=== PATIENT | female | born 1980 ===

== ENCOUNTER 2022-05-15 05:55 | Day surgery (SDC) | payer OTHER ==
[~2022-05-15] VITALS: Ht 170.2 cm; Wt 104.3 kg
[2022-05-15] MEDS ORDERED: MIDAZOLAM 2 MG/2 ML VIAL ONE (07:22)
[2022-05-15] MEDS ORDERED: fentaNYL citrate 0.05 MG/ML VIAL ONE (07:22)
[2022-05-15] MEDS ORDERED: MIDAZOLAM 2 MG/2 ML VIAL IVP ONE (08:25)
== END 2022-05-15 08:45 | disposition home or self-care (01) ==
LOC: MDS 05:55 → MMU 06:17 → MDS 08:45
PROVIDERS: ATTEND Internal Medicine Gastroenterology
DX: K76.0 Fatty (change of) liver, not elsewhere classified (principal); K74.60 Unspecified cirrhosis of liver; K44.9 Diaphragmatic hernia without obstruction or gangrene; Z98.84 Bariatric surgery status; Z20.822 Contact with and (suspected) exposure to COVID-19
CPT/HCPCS: 43235; 81025; 87426; J2250; J3010

== ENCOUNTER 2022-05-28 16:23 | Emergency (ER) | payer OTHER ==
[~2022-05-28] VITALS: Ht 170.2 cm; Wt 105.9 kg
[2022-05-28 16:27] VITALS: BP 123/74
--- NOTE | 2022-05-28 16:50 | NUR ---
DR TIPTON AT BEDSIDE EVALUATING PT
[2022-05-28 17:47] LABS: BASOPHILS % (AUTO) 0.7 % (0.0-2.0); EOSINOPHILS % (AUTO) 1.1 % (0.0-4.0); HEMATOCRIT 32.5 % (36-48); HEMOGLOBIN 11.2 g/dL (12.0-16.0); LYMPHOCYTES # (AUTO) 1.4 K/uL (2.5-16.5); LYMPHOCYTES % (AUTO) 33.3 % (20.5-51.1); MEAN CORPUSCULAR HEMOGLOBIN 30 pg (27-31); MEAN CORPUSCULAR HGB CONC 34 g/dL (33-37); MEAN CORPUSCULAR VOLUME 87.1 fL (80-94); MONOCYTES # (AUTO) 0.3 K/uL (0.8-1.0); MONOCYTES % (AUTO) 7.9 % (1.7-9.3); NEUTROPHILS # (AUTO) 2.5 K/uL (1.8-7.7); PLATELET COUNT (AUTO) 205 K/uL (140-450); RED BLOOD CELL COUNT(AUTO) 3.73 MIL/uL (4.20-5.40); RED CELL DISTRIBUTION WIDTH 13.2 % (11.6-13.7); WHITE BLOOD COUNT (AUTO) 4.3 K/uL (4.8-10.8)
--- NOTE | 2022-05-28 17:59 | NUR ---
41/F PRESENTS TO ED WITH C/O VAGINAL BLEEDING X1 MONTH. PATIENT REPORTS TODAY WORSENING BLEEDING WITH CLOTS AND 7/10 LOWER ABDOMINAL CRAMPING, PATIENT REPORTS SIMILAR SYMPTOMS IN THE PAST AND WAS TAKING HORMONES BUT STATES STOPPED THEM DUE TO WEIGHT GAIN. DENIES CP, SOB, DIZZINESS OR VISION CHANGES.
[2022-05-28 18:09] LABS: ALBUMIN 3.2 g/dL (3.4-5.0); ANION GAP 13.6 (8-16); CARBON DIOXIDE 25.1 mmol/L (21-32); CREATININE 0.4 mg/dL (0.6-1.3); POTASSIUM 3.7 mmol/L (3.5-5.1); TOTAL BILIRUBIN 0.7 mg/dL (0.0-1.0)
[2022-05-28 18:14] LABS: PROTHROMBIN TIME 10.6 secs (10.8-13.4)
--- NOTE | 2022-05-28 18:45 | NUR ---
PATIENT RESTING IN BED WITH EYES OPEN, REPORTS RELIEF OF PAIN WHILE LYING DOWN. ALL NEEDS MET AT THIS TIME.
--- NOTE | 2022-05-28 19:29 | NUR ---
Pt report given to RAUL GONZALES. Transfer of care at this time.
[2022-05-28 19:35] VITALS: BP 124/77
--- NOTE | 2022-05-28 19:35 | NUR ---
Patient discharged with v/s stable. Written and verbal after care instructions given and explained. Patient verbalized understanding. Ambulatory with steady gait. All questions addressed prior to discharge. Advised to follow up with PMD.
== END 2022-05-28 19:35 | disposition home or self-care (01) ==
LOC: MED 16:23
DX: D25.9 Leiomyoma of uterus, unspecified (principal); N93.8 Other specified abnormal uterine and vaginal bleeding
CPT/HCPCS: 36415; 76830; 80053; 85025; 85610; 85730; 99284; Q0092